=== PATIENT | female | born 1985 | race African-American/Black ===

== ENCOUNTER 2025-01-27 12:52 | Emergency (ER) | payer MEDICAID ==
[~2025-01-27] VITALS: Ht 167.6 cm; Wt 100.0 kg
[2025-01-27 13:00] VITALS: O2SAT 99
[2025-01-27] MEDS: TETANUS, DIPHTHERIA, PERTUSSIS VAC/PF 0.5ML (>10YR OLD) IM ONE (15:15)
[2025-01-27] MEDS: ACETAMINOPHEN 325MG TABLET PO ONE (15:16)
[2025-01-27] MEDS: LIDOCAINE HCL/EPINEPHRINE 1%-EPI 1:100,000 20ML VIAL INFIL ONE (15:40)
[2025-01-27] MEDS: BACITRACIN ZINC OINT UDPKT TOP ONE (15:40)
[2025-01-27] MEDS ORDERED: BO1 TP (17:42)
[2025-01-27] MEDS ORDERED: IBUP-2029 MT (17:42)
[2025-01-27] MEDS ORDERED: CEPH500T MT (17:42)
[2025-01-27] MEDS ORDERED: LISI20TA31 MT (18:13)
[2025-01-27 18:35] VITALS: BP 192/104; PULSE 89; RESP 14; TEMP 37.2; O2SAT 100
== END 2025-01-27 18:35 | disposition home or self-care (01) ==
LOC: ER 12:52
DX: S81.812A Laceration without foreign body, left lower leg, initial encounter (principal); E11.9 Type 2 diabetes mellitus without complications; I10 Essential (primary) hypertension; Z79.899 Other long term (current) drug therapy; W10.9XXA Fall (on) (from) unspecified stairs and steps, initial encounter; Y93.89 Activity, other specified; Y92.89 Other specified places as the place of occurrence of the external cause; Y99.8 Other external cause status
CPT/HCPCS: 90715; 12004; 90471; 99283; J2004; Z7610 ×2; A6449

== ENCOUNTER 2025-01-29 19:29 | Emergency (ER) | payer MEDICAID ==
[~2025-01-29] VITALS: Ht 167.6 cm; Wt 123.0 kg
[~2025-01-29 19:29] MED LIST: BO1 TP; CEPH500T MT; IBUP-2029 MT; LISI20TA31 MT
[2025-01-29 19:49] VITALS: O2SAT 99
[2025-01-29 21:20] VITALS: BP 175/81; PULSE 80; RESP 16; TEMP 36.8; O2SAT 100
== END 2025-01-29 21:25 | disposition home or self-care (01) ==
LOC: ER 19:29
DX: S81.812D Laceration without foreign body, left lower leg, subsequent encounter (principal); E11.9 Type 2 diabetes mellitus without complications; Z48.00 Encounter for change or removal of nonsurgical wound dressing; I10 Essential (primary) hypertension; Z79.899 Other long term (current) drug therapy; X58.XXXD Exposure to other specified factors, subsequent encounter
CPT/HCPCS: 99281

== ENCOUNTER 2025-02-06 17:30 | Emergency (ER) | payer MEDICAID ==
[~2025-02-06] VITALS: Ht 167.6 cm; Wt 125.0 kg
[2025-02-06 18:00] VITALS: TEMP 36.8; O2SAT 99
[2025-02-06] MEDS ORDERED: SULF1TAB48 MT (20:52)
[2025-02-06] MEDS: KETOROLAC 15MG/ML VIAL IM ONE (21:55)
[2025-02-06 21:58] VITALS: BP 174/116; PULSE 60; RESP 19; O2SAT 100
== END 2025-02-06 22:00 | disposition home or self-care (01) ==
LOC: ER 17:30
DX: S81.812D Laceration without foreign body, left lower leg, subsequent encounter (principal); I10 Essential (primary) hypertension; Z79.899 Other long term (current) drug therapy; X58.XXXD Exposure to other specified factors, subsequent encounter
CPT/HCPCS: 99283; 96372; J1885

== ENCOUNTER 2025-03-15 14:55 | Emergency (ER) | payer MEDICAID ==
[~2025-03-15] VITALS: Ht 172.7 cm; Wt 100.0 kg
[~2025-03-15 14:55] MED LIST changes: +SULF1TAB48 MT
[2025-03-15 15:00] VITALS: O2SAT 98
[2025-03-15 15:59] LABS: BASOPHILS % 0.2 % (0.0-2.0); EOSINOPHILS % 1.2 % (0.0-5.0); HEMATOCRIT. 40.5 % (36.0-48.0); HEMOGLOBIN. 13.3 g/dL (12.0-16.0); LYMPHOCYTES % 28.9 % (20.0-50.0); MEAN PLATELET VOLUME 9.3 fl (7.4-10.4); MONOCYTES % 4.1 % (2.0-8.0); NEUTROPHILS % 65.6 % (40.0-76.0); PLATELET 280 x1000/uL (130-400); RED BLOOD CELL COUNT 4.91 mill/uL (4.2-5.4); RED CELL DISTRIBUTION WIDTH 14.4 % (11.6-14.6)
[2025-03-15] MEDS: KETOROLAC 15MG/ML VIAL IV ONE (16:07)
[2025-03-15] MEDS: METOCLOPRAMIDE HCL 10MG/2ML VIAL IV ONE (16:07)
[2025-03-15] MEDS: SODIUM CHLORIDE 0.9% 1,000 ML IV ONE (16:09)
[2025-03-15 16:11] LABS: HCG SCREEN NEGATIVE
[2025-03-15 16:12] LABS: CREATININE 0.6 mg/dL (0.6-1.0); UREA NITROGEN BLOOD 14 mg/dL (9-23)
[2025-03-15 16:13] LABS: TROPONIN I HIGH SENSITIVITY 9 ng/L (3.0-34)
[2025-03-15 16:14] LABS: ASPARTATE AMINOTRANSFERASE 12 IU/L (<34); BILIRUBIN DIRECT < 0.1 mg/dL (<=3.0); BILIRUBIN TOTAL 0.3 mg/dL (0.1-1.0); PROTEIN TOTAL 7.2 g/dL (6.0-8.3)
[2025-03-15] MEDS: POTASSIUM CHLORIDE 20MEQ/PACKET PO SCH (16:38)
[2025-03-15] MEDS ORDERED: NAPR220C61 MT (17:37)
[2025-03-15 17:53] VITALS: BP 154/85; PULSE 75; RESP 14; TEMP 36.8; O2SAT 100
== END 2025-03-15 18:06 | disposition home or self-care (01) ==
LOC: ER 14:55
DX: R51.9 Headache, unspecified (principal); E87.6 Hypokalemia; I10 Essential (primary) hypertension; Z79.899 Other long term (current) drug therapy
CPT/HCPCS: 99285; 96374; 70450; 71045; 96361; 96375; 80076; 80048; 84703; 83690; 83735; 85025; 84484; 36415; J1885; J2765; J7030

== ENCOUNTER 2025-03-19 21:52 | Emergency (ER) | payer OTHER, MEDICAID ==
[~2025-03-19] VITALS: Ht 165.1 cm; Wt 90.0 kg
[~2025-03-19 21:52] MED LIST changes: +IBUP-1455 MT; -IBUP-2029 MT; +NAPR220C61 MT
[2025-03-19 21:53] VITALS: O2SAT 100
[2025-03-19] MEDS: HYDROCODONE/ACETAMINOPHEN 5/325MG TABLET PO ONE (23:58)
[2025-03-20] MEDS ORDERED: CYCL10TA21 MT (02:17)
[2025-03-20] MEDS ORDERED: NAPR-1176 MT (02:17)
[2025-03-20] MEDS: AMLODIPINE 10MG TABLET PO ONE (03:10)
[2025-03-20] MEDS: ONDANSETRON 4MG ODT PO ONE (03:45)
[2025-03-20] MEDS: KETOROLAC 30MG/ML VIAL IM ONE (04:45)
[2025-03-20 04:59] VITALS: BP 159/85; PULSE 67; RESP 18; TEMP 36.8; O2SAT 100
== END 2025-03-20 05:07 | disposition home or self-care (01) ==
LOC: ER 21:52
DX: S16.1XXA Strain of muscle, fascia and tendon at neck level, initial encounter (principal); S39.012A Strain of muscle, fascia and tendon of lower back, initial encounter; E11.9 Type 2 diabetes mellitus without complications; I10 Essential (primary) hypertension; Z79.899 Other long term (current) drug therapy; V49.40XA Driver injured in collision with unspecified motor vehicles in traffic accident, initial encounter; Y93.89 Activity, other specified; Y92.89 Other specified places as the place of occurrence of the external cause; Y99.8 Other external cause status
CPT/HCPCS: 99285; 81025; 70450; 72125; 72131; 96372; J1885; Q0162